=== PATIENT | male | born 1995 | race Two or more races ===

== ENCOUNTER 2019-04-06 22:28 | Emergency (ER) | payer OTHER ==
--- NOTE | 2019-04-06 23:03 | ER Document Report ---
Entered by AMANDEEP DOUGLAS SCRIBE 04/06/19 4422 Acting as scribe for:KATHLEEN VIERA IV, MD ED General - General Chief Complaint: Overdose Stated Complaint: POSSIBLE OVERDOSE Mode of Arrival: Medic Information source: Emergency Med Personnel Notes: This 23 year old male patient who is currently [place] [facility] [place] EMS presents to the ED today with complaints of attempted suicide and possible overdose per EMS. EMS reports that they were called by the patient's family on the scene. EMS reports that the patient allegedly consumed x9 pills of 75 mg Venlafaxine, x24 pills of 1 mg Alprazolam, x20 pills of 20 mg Adderall, and 25 mg Hydroxyzine around 2140 this evening. A x21 tablet supply of hydroxyzine was recently filled on 04/04/19 and the bottle is currently empty. EMS reports that the patient walked to the truck and was awake and alert, but he took a turn for the worse en route. EMS states that the patient's oxygen saturation dropped to 80% RA and that they put him on 6L O2 via NC and placed a NPA in his left nare. EMS states that they also administered 50 g charcoal. 2255: Case discussed with Poison Control. These are their recommendations: Monitor for [employer] [employer] and respiratory depression. Give bicarb boluses for prolonged QRS. Give benzos for seizures or agitation. Draw CMP, Tylenol level, and get EKG. Monitor for at least x6 hours and then continue to monitor until at baseline. (Greatest risk for occurrences within x6 hours post ingestion. Past Medical History - Social History Smoking Status: Unknown if Ever Smoked Cigarette use (# per day): No Chew tobacco use (# tins/day): No Smoking Education Provided: No Occupation: Active [place] [facility] [place] Family History: Reviewed & Not Pertinent Review of Systems - Review of Systems Constitutional: Other - Possible overdose EENT: No symptoms reported Cardiovascular: No symptoms reported Respiratory: No symptoms reported Gastrointestinal: No symptoms reported Genitourinary: No symptoms reported Musculoskeletal: No symptoms reported Skin: No symptoms reported Hematologic/Lymphatic: No symptoms reported Neurological/Psychological: See HPI, Suicidal ideation -: Yes All other systems reviewed and negative Physical Exam - Vital signs Vitals: Pulse Ox 100 04/06/19 22:29 Interpretation: Normal - General General appearance: Other - Somnolent, but arousable to light stimuli. Maintaining airway. - HEENT Head: Normocephalic, Atraumatic Eyes: Normal Pupils: PERRL - Respiratory Respiratory status: No respiratory distress Chest status: Nontender Breath sounds: Normal Chest palpation: Normal - Cardiovascular Rhythm: Regular Heart sounds: Normal auscultation Murmur: No - Abdominal Inspection: Normal Distension: No distension Bowel sounds: Normal Tenderness: Nontender Organomegaly: No organomegaly - Back Back: Normal, Nontender - Extremities General upper extremity: Normal inspection General lower extremity: Normal inspection - Neurological Neuro grossly intact: Yes - Psychological Associated symptoms: Other - Somnolent - Skin Skin Temperature: Warm Skin Moisture: Dry Skin Color: Normal Course - Re-evaluation Re-evalutation: 04/06/19 23:37 Case discussed with [facility] transfer center coordinator. He said he spoke with the on-call psychiatrist who is apparently familiar with the patient and the coordinator reports that the patient just got discharged from the psychiatric hospital a few days ago. The coordinator stated that once the patient has been medically cleared, this MD could contact the transfer center and speak with the psychiatrist on-call in terms of having [place]. 04/07/19 07:43 Transport has arrived to take patient to [facility]. This MD went to the patient's room to inform him of the transfer. Patient is in no acute distress at this time. - Vital Signs Vital signs: Temp Pulse Resp BP Pulse Ox 98 F 19 136/75 H 100 04/07/19 07:49 04/07/19 07:49 04/07/19 07:49 04/07/19 07:49 - Laboratory Result Diagrams: 04/06/19 22:45 04/06/19 22:45 Laboratory results interpreted by me: 04/06/19 22:45 Potassium 3.3 L Total Protein 5.8 L Salicylates < 1.0 L Acetaminophen < 10 L Discharge - Discharge Clinical Impression: Intentional drug overdose Qualifiers: Encounter type: initial encounter Qualified Code(s): T50.902A - Poisoning by unspecified drugs, medicaments and biological substances, intentional self-harm, initial encounter Condition: Fair Disposition: [facility] I personally performed the services described in the documentation, reviewed and edited the documentation which was dictated to the scribe in my presence, and it accurately records my words and actions.
[2019-04-06 23:07] LABS: ABSOLUTE BASOPHILS # (AUTO) 0.1 10^3/uL (0.0-0.2); ABSOLUTE LYMPHOCYTES (AUTO) 2.4 10^3/uL (0.5-4.7); ABSOLUTE MONOCYTES (AUTO) 0.6 10^3/uL (0.1-1.4); ABSOLUTE NEUT (AUTO) 5.9 10^3/uL (1.7-8.2); BASOPHILS % (AUTO) 0.7 % (0-2); EOSINOPHILS % (AUTO) 0.2 % (0-6); HEMATOCRIT 41.2 % (37.9-51.0); HEMOGLOBIN 14.6 g/dL (13.5-17.0); LYMPHOCYTES % (AUTO) 26.7 % (13-45); MEAN CORPUSCULAR HEMOGLOBIN 29.6 pg (27.0-33.4); MEAN CORPUSCULAR HGB CONC 35.4 g/dL (32.0-36.0); MEAN CORPUSCULAR VOLUME 84 fl (80-97); MONOCYTES % (AUTO) 6.4 % (3-13); PLATELET COUNT 237 10^3/uL (150-450); RED BLOOD COUNT 4.93 10^6/uL (4.35-5.55); RED CELL DISTRIBUTION WIDTH 12.4 % (11.5-14.0); TOTAL CELLS COUNTED % (AUTO) 100 %
[2019-04-06 23:29] LABS: ALBUMIN 3.5 g/dL (3.5-5.0); ALKALINE PHOSPHATASE 68 U/L (38-126); ANION GAP 12 (5-19); ASPARTATE AMINO TRANSFERASE 24 U/L (17-59); BILIRUBIN,DIRECT 0.2 mg/dL (0.0-0.4); BILIRUBIN,TOTAL 0.4 mg/dL (0.2-1.3); BLOOD UREA NITROGEN 18 mg/dL (7-20); CALCIUM 8.5 mg/dL (8.4-10.2); CARBON DIOXIDE 23 mmol/L (22-30); CHLORIDE 104 mmol/L (98-107); GLUCOSE 89 mg/dL (75-110); POTASSIUM 3.3 mmol/L (3.6-5.0); TOTAL PROTEIN 5.8 g/dL (6.3-8.2)
[2019-04-06 23:31] LABS: ACETAMINOPHEN < 10 ug/mL (10-30); ALCOHOL < 10 mg/dL (NONE DETECTED); SALICYLATE < 1.0 mg/dL (2.0-20.0)
[2019-04-07 00:50] LABS: URINE BARBITURATES SCREEN NEGATIVE; URINE COCAINE SCREEN NEGATIVE; URINE MARIJUANA (THC) SCREEN NEGATIVE; URINE METHADONE SCREEN NEGATIVE; URINE PHENCYCLIDINE SCREEN NEGATIVE
[2019-04-07 00:51] LABS: URINE AMPHETAMINES SCREEN UNCONFIRMED POSITIVE; URINE BENZODIAZEPINES SCREEN UNCONFIRMED POSITIVE
[2019-04-07 07:53] VITALS: BP 136/75
--- NOTE | 2019-04-07 20:25 | EKG REPORT ---
SEVERITY:- BORDERLINE ECG - SINUS RHYTHM BORDERLINE PROLONGED QT INTERVAL : Confirmed by: Leandro Brown MD 07-Apr-2019 20:24:14
== END 2019-04-07 07:56 ==
LOC: ER 22:28
DX: T43.212A Poisoning by selective serotonin and norepinephrine reuptake inhibitors, intentional self-harm, initial encounter (principal); T42.4X2A Poisoning by benzodiazepines, intentional self-harm, initial encounter; T43.622A Poisoning by amphetamines, intentional self-harm, initial encounter; T43.592A Poisoning by other antipsychotics and neuroleptics, intentional self-harm, initial encounter; R40.0 Somnolence
CPT/HCPCS: 36415; 80053; 80307; 85025; 93005; 93010; 99285